=== PATIENT | female | born 1965 | race Caucasian/White ===

== ENCOUNTER → 2017-01-08 | Day surgery (SDC) | payer SELFPAY ==
[~2017-01-08] VITALS: Ht 162.6 cm; Wt 76.2 kg
[~2017-01-08] MED LIST: BUPROPION300 MG PO; CHILDREN'S160 MG/51 PO; DILAUDID2 MG PO; HYCET 325 MG/1473 ML PO; LEXAPRO10 M1 PO; LISINOPRIL-HCT1 EAC2 PO; LISINOPRIL/HCTZ1 TAB PO; NASONEX17 GM NASB; PROTONIX 40MG T40 MG PO; PSEUDOEPHEDRINE30 MG PO; VALACYCLOVIR1000 MG PO; WELLBUTRIN 100100 MG PO; WELLBUTRIN 75MG75 MG PO; ZOLPIDEM TARTRAT5 M1 PO
--- NOTE | 2017-01-08 15:04 | Operative Report ---
See Addendum Operative/Inv Procedure Report Surgery Date: 01/08/17 Name of Procedure: Liposuction lower back placed lateral thighs anterior thighs and medial thighs Pre-Operative Diagnosis: Lipodystrophy trunk and thighs Post-Operative Diagnosis: Same Estimated Blood Loss: scant (300) Surgeon/Grinder Set Up Operator Surface: JEROME CHAMBERS MD Anesthesia: general endotracheal tube Operative/Procedure Note Note: Patient was counseled extensively regards to the procedure the alternatives risks and expected outcomes as relates to request for surgical intervention to treat significant abdominal lipodystrophy as well as lipodystrophy of the thighs. The patient has significant deviations from the anesthetic normal of the buttocks including its cleft size width and height. Skin is well and heavy tissues. We talked about the limitations of a non-skin excising procedure to treat the appearance of the buttock and thighs. She has accepted liposuction only being fully aware of the limitations. She was given and a SPS informed consent for abdominal plasty as well as liposuction has no further questions regarding today. He was marked in the standing position with a measuring tape and shown the areas of liposuction anteriorly and laterally and medially that would be performed as well as the skin excision extent of the abdominoplasty. Then signed informed consent. She was taken to the operating placed supine on the pressure. Venodyne boots are placed and then general endotracheal anesthesia was established intravenous antibiotic given. She was then put in the prone position and appropriately padded. The areas of liposuction which were previously marked in the standing position without prepped and draped in usual sterile fashion. Small access sites were used and tumescent fluid was instilled. Liposuction was carried out of the lower back upper and lateral buttock lateral thighs. Incisions were closed with Dermabond. He was then turned into the supine position. Tumescent fluid was placed in the anterior as well as medial lower and upper side. Chondroplasty was performed with a 2 layer nonabsorbable plication from xiphoid to pubis and 3 layer closure closure of the incisions over 2 drains as well as a 3 layer closure of a very tight umbilicus which was pointed out to the patient preoperatively in regards to his extremely narrow size and gets 1 inch deviation from the midline. Liposuction was then performed of the anterior thigh lateral thigh medial lower thigh and medial upper thigh. Total of approximately 5304-1480 mL of fluid was removed. Incisions were closed on the thigh.
--- NOTE | 2017-01-18 13:18 | Operative Report ---
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 The patient is requesting abdominoplasty. She is also requesting liposuction of the thighs and back. The patient was advised she has a heavy buttocks and that there are limits to liposuction especially as it relates to reshaping of the buttock and a lack of direct contraction of the skin. The patient will be better shaped postoperatively. The patient was given a SPS informed consents which she understands and has returned. We talked about numbness infection bleeding injury to deeper and surrounding structures lumpiness or irregularity of the skin surface which exists preoperatively as well. About failure of the skin to contract and that is not a guarantee implied or other. Fat necrosis firmness following liposuction is a risk as well. As outlined in the consent forms. The patient was marked in the standing position for liposuction of the thighs and she was brought to the operating placed supine on the table Venodyne boots are placed the patient was then placed supine on the operating table after intubation. The back was prepped and draped in usual sterile fashion. Tumescent 4 formula was introduced into the marked areas for liposuction. Then carried out with a 4 cannula of the upper buttock lower back as well as upper back. Incisions were closed with a suture and glue. Turned into the supine position. Abdominoplasty was completed following a 2 layer nonabsorbable closure of the diastases from xiphoid to pubis. 3 layer closure of the marked skin incisions over 2 drains was carried out with a 3 layer closure of the umbilicus liposuction was carried out after placement of tumescent fluid in the anterior medial and some lateral thigh. Tissues closed with sutures and gglue . Normal binder placed. Patient was stable throughout approximately 4-1/2-5 L of tumescent was placed and aspirated for similar amount.
== END ==
LOC: STS 01:48
DX: Z41.1 Encounter for cosmetic surgery (principal); E65 Localized adiposity; I10 Essential (primary) hypertension
CPT/HCPCS: 88302; J0171; J0690; J2250

== ENCOUNTER → 2017-09-24 | Day surgery (SDC) | payer SELFPAY ==
[~2017-09-24] VITALS: Ht 162.6 cm; Wt 74.4 kg
[~2017-09-24] MED LIST changes: +CLARITIN-D 121 EACH PO; +MULTIVITAMINS1 EAC9 PO
--- NOTE | 2017-09-24 17:41 | Operative Report ---
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 She has some residual subcutaneous fullness of the anterior abdominal wall and left lateral 5 following previous procedures. She is accepting of facial fat grafting liposuction of the anterior abdominal wall left lateral thigh and in upper and lower lid blepharoplasty. We talked about the risks which she was given a SPS informed consent. She has no further questions regarding those forms. Marked in the sitting position in the holding area for the planned fat sites. Fascial markings were placed. She was brought to the operating room placed supine on the table. Venodyne boots are placed vancomycin was given general anesthesia was established. The face abdomen and left thigh were prepped and draped in usual sterile fashion. Local anesthesia was injected into the upper lower lids. Lower lid blepharoplasty with skin fat flap was performed excising fat from compartments as needed. Skin was then gently advanced and minimally trimmed. Canthopexy was performed. This was done bilaterally and the wounds were closed with 6-0 running Prolene. And she was then turned to the upper lids which were injected with 1% lidocaine with epinephrine. Can only excision was performed with a small amount of medial fat removed. Wounds were closed with running 6-0 Prolene. Was then turned to the anterior abdominal wall left lateral thigh were tumescent technique was used. Fat was harvested via syringe technique entered and injected into the face and the following proportions. 1 mL in the glabellar 3 mL each zygomatic arch and cheek 2 mL in each marionette line including the pre-jowl sulcus 1 mL in the upper and 1 mL in the lower lip. Ends dictation
== END ==
LOC: STS 02:30
DX: Z41.1 Encounter for cosmetic surgery (principal); H02.403 Unspecified ptosis of bilateral eyelids; E65 Localized adiposity; L90.8 Other atrophic disorders of skin; I10 Essential (primary) hypertension
CPT/HCPCS: C9399; J0171; J0690; J2250; J3370

== ENCOUNTER → 2017-12-10 | Day surgery (SDC) | payer SELFPAY ==
[~2017-12-10] VITALS: Ht 162.6 cm; Wt 76.2 kg
--- NOTE | 2017-12-10 17:36 | Operative Report ---
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 Patient is requesting a surgical buttock cleft with fat grafting to the buttock after liposuction of the trunk and thighs. And regarding the ASO PDS informed consents which we discussed in the office. She was shown the rodriguez on her back. rodriguez placed in the bent forward position. She was taken to the operating room placed supine on the table. Venodyne boots are placed general anesthesia was established intravenous antibiotics were given to cover MRSA. Liposuction was used in the anterior abdominal wall upper medial thighs medial knees and flanks with the use of the tumescent technique. The incisions were closed with sutures and group. She was then put into the prone position and appropriately padded. Tumescent fluid was again injected into the lateral upper buttocks and the bra rolls. Tumescent technique was again used and the fat was then decanted and approximately 900 mL was injected into each buttock in the subcutaneous position. Closed with sutures and glue.
== END ==
LOC: STS 01:40
DX: Z41.1 Encounter for cosmetic surgery (principal); E65 Localized adiposity; I10 Essential (primary) hypertension; Z22.322 Carrier or suspected carrier of Methicillin resistant Staphylococcus aureus
CPT/HCPCS: C9399; J0131; J0171; J0690; J2250; J2405; J3370; J7060